=== PATIENT | female | born 2005 | race Caucasian/White ===

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

== ENCOUNTER 2023-08-25 16:27 | Emergency (ER) | payer SELFPAY ==
[2023-08-25 16:28] VITALS: BP 127/63; PULSE 95; RESP 18; TEMP 36.5; O2SAT 94; BMI 40.6
--- NOTE | 2023-08-25 16:33 | PC.NURSE ---
ER AT BEDSIDE
--- NOTE | 2023-08-25 16:34 | PC.NURSE ---
DR SEN AT BEDSIDE
--- NOTE | 2023-08-25 16:36 | HMH.EDGENADL ---
Discharge Plan Disposition Patient Disposition: Home, Self-Care Prescriptions Prescriptions: No Action quetiapine 50 mg tablet 50 mg PO DAILY Patient Comments: TAKE 1 TABLET BY MOUTH AT BEDTIME Referrals Follow up/Referrals: Brandon James DO [Primary Care Provider] - See instructions Activity Restrictions/Add. Instructions Additional Instructions/Restrictions: Your COVID flu and strep test were all negative this is consistent with a viral upper respiratory infection you may take Tylenol and ibuprofen or any [id number]-[id number] medications as needed for your symptoms. Return with any respiratory distress or any other concerns. Clinical Impressions Clinical Impression: URI (upper respiratory infection) Stand Alone Forms Stand Alone Forms: Work/School Release Discharge ED Provider: Sam Gagnon General Adult HPI General Chief complaint: Upper Respiratory Infection Stated complaint: sore throat, [place], runny nose Time Seen by Provider: 08/25/23 16:34 History of Present Illness HPI narrative: Patient is a 18-year-old previously healthy female presenting to the emergency department with sore throat and rhinorrhea. She has had a mild headache as well. Denies any cough or any significant respiratory symptoms. Related Data Home Medications Medication Instructions Recorded Confirmed quetiapine 50 mg tablet 50 mg PO DAILY 08/25/23 08/25/23 Allergies Allergy/AdvReac Type Severity Reaction Status Date / Time No Known Allergies Allergy Verified 08/25/23 16:40 [facility] Disclaimer: The information contained in this section may have been updated after the patient was seen, as this information can be updated by other users. Medical History (Updated 08/25/23 @ 16:38 by Sam Gagnon MD) ADHD Anxiety Scoliosis Surgical History (Updated 06/12/23 @ 11:27 by Terri Martinez MA) History of tonsillectomy Family History (Updated 06/12/23 @ 11:27 by Terri Martinez MA) Other Cancer Coronary artery disease Social History Smoking Status: Never smoker second hand exposure: No alcohol intake: never substance use type: denies use current occupational status: student Travel in the last 8 weeks: Inside the [place] household members: family housing: house current occupational exposures/hazards: No caffeine: Yes ROS Obtained: Yes All systems reviewed & no additional complaints except as documented Physical Exam General General appearance: alert ENT ENT exam: Present TM's normal bilaterally and other (Posterior oropharynx erythematous but no soft tissue asymmetry tolerating secretions well no trismus no exudates) Chest Chest inspection: Present normal inspection Respiratory Respiratory exam: Present normal lung sounds bilaterally; Absent respiratory distress, wheezes, stridor or accessory muscle use Cardiovascular Cardiovascular exam: Present regular rate; Absent tachycardia Neurological Exam Neurological exam: Present alert and oriented X3 Medical Decision Making John Inquiry Pt receiving controlled substance: No Vital Signs: 08/25/23 16:28 Temperature 97.7 F Temperature Source Oral Pulse Rate [Left Radial] 95 H Respiratory Rate 18 Blood Pressure [Right Arm] 127/63 Blood Pressure Mean [Right Arm] 84 Blood Pressure Source [Right Arm] Automatic Cuff Blood Pressure Position [Right Arm] Sitting 02 Sat by Pulse Oximetry 94 L Oxygen Delivery Method Room Air Lab Data Lab results reviewed: Yes I reviewed the patient's lab results. Lab Results 08/25/23 16:45: SARS-CoV-2 (PCR) Not detected, Influenza A Untype (PCR) Not detected, Influenza Type B (PCR) Not detected, Group A Strep Rapid Negative Orders (Tests/Meds): ED MEDICATIONS Discontinued Medications Generic Name Dose Route Start Last Admin Trade Name Freq PRN Reason Stop Dose Admin Ibuprofen 800 mg 08/25/23 16:36 08/25/23
[2023-08-25 16:48] LABS: Coronavirus 19, PCR Not Detected (NotDetected); Influenza A, PCR Not Detected (NotDetected); Influenza B, PCR Not Detected (NotDetected)
[2023-08-25 17:02] LABS: Strep Scrn Group A (Rapid) Negative (Negative)
[2023-08-25 17:29] VITALS: BP 110/64; PULSE 75; RESP 17; TEMP 36.8; O2SAT 98
== END 2023-08-25 17:31 | disposition home or self-care (01) ==
PROVIDERS: Emergency Provider Student in an Organized Health Care Education/Training Program; PCP Internal Medicine
DX: J06.9 Acute upper respiratory infection, unspecified (principal); J02.9 Acute pharyngitis, unspecified; R51.9 Headache, unspecified; F41.9 Anxiety disorder, unspecified; F90.9 Attention-deficit hyperactivity disorder, unspecified type
CPT/HCPCS: 87430; 87636; 99283

== ENCOUNTER 2025-08-22 10:34 | Outpatient (CLI) | payer SELFPAY ==
[2025-08-22 20:34] LABS: Coronavirus 19, PCR Not Detected (NotDetected); Influenza A, PCR Not Detected (NotDetected); Influenza B, PCR Not Detected (NotDetected)
== END 2025-08-22 23:59 ==
LOC: LAB.DROPOF 08-24 10:35
PROVIDERS: Visit Provider Student in an Organized Health Care Education/Training Program
DX: J06.9 Acute upper respiratory infection, unspecified (principal)
CPT/HCPCS: 87631